=== PATIENT | male | born 1950 | race Caucasian/White ===

== ENCOUNTER → 2024-03-19 | Outpatient (CLI) | payer MEDICARE ==
--- NOTE | 2024-03-19 14:31 | US ---
EXAMINATION TYPE: US abdomen complete DATE OF EXAM: 03/19/2024 COMPARISON: NONE CLINICAL INDICATION: Male, 74 years old with history of Z12.31 screen mammo; History of kidney stones TECHNIQUE: Multiple sonographic images of the abdomen are obtained. FINDINGS: EXAM MEASUREMENTS: Liver Length: 16.0 cm Gallbladder Wall: 0.2 cm CBD: 0.5 cm Spleen: 11.5 cm Right Kidney: 10.1 x 5.5 x 5.7 cm Left Kidney: 11.0 x 5.7 x 5.2 cm Pancreas: visualized portions wnl, limited by overlying midline bowel gas Liver: scanned intercostal, visualized portions wnl Gallbladder: borderline hydropic Evidence for sonographic Saha's sign: no CBD: visualized portions wnl, limited by overlying bowel gas Spleen: visualized portions wnl, limited by overlying bowel gas Right Kidney: wnl Left Kidney: wnl Upper IVC: wnl Abd Aorta: proximal and distal portions appear wnl, mid portion obscured by overlying midline bowel gas The liver is homogenous. The intrahepatic portion of the IVC and proximal abdominal aorta are within normal limits. There is no evidence of cholelithiasis. Common bile duct is unremarkable. The visu alized portions of the pancreas are homogenous. The spleen is unremarkable. Kidneys are symmetric a nd free of hydronephrosis. No renal lesions are seen. IMPRESSION: Bowel gas results in some limitations of the pancreas, spleen, common bile duct and aorta but no sign ificant abnormality seen in the visualized portions of the upper abdomen and retroperitoneum.
== END | disposition home or self-care (01) ==
LOC: RADUSWWP 10:31
PROVIDERS: ATTEND Internal Medicine Geriatric Medicine
DX: Z12.31 Encounter for screening mammogram for malignant neoplasm of breast (principal); N20.0 Calculus of kidney; R14.3 Flatulence
CPT/HCPCS: 76700